=== PATIENT | male | born 1965 | race Caucasian/White ===

== ENCOUNTER 2017-01-17 14:19 | Emergency (ER) | payer OTHER | END 2017-01-17 15:45 | disposition home or self-care (01) | LOC: ER1 14:19 | DX: J02.0 Streptococcal pharyngitis (principal); F17.210 Nicotine dependence, cigarettes, uncomplicated; Z88.0 Allergy status to penicillin | CPT/HCPCS: 87081; 87880; 96372; 99283; J1100 ==

== ENCOUNTER → 2021-07-01 | Outpatient (CLI) | payer OTHER | LOC: KOH-I 13:00 | DX: K40.90 Unilateral inguinal hernia, without obstruction or gangrene, not specified as recurrent (principal) | CPT/HCPCS: 72192 ==